=== PATIENT | female | born 1980 | race Caucasian/White ===

== ENCOUNTER 2017-07-29 13:19 | Inpatient (IN) | payer BC ==
[2017-07-29] MEDS: Lactated Ringers 1,000 ML IV SCH ×3 (13:45→17:23)
[2017-07-29] MEDS ORDERED: Nalbuphine 20 MG/ML 1 ML Syringe IVPUSH PRN (13:59)
[2017-07-29] MEDS ORDERED: Ondansetron 4 MG/2 ML SDV IVPUSH PRN ×2 (13:59→14:11)
[2017-07-29] MEDS ORDERED: Sodium Chloride 0.9% 10 ML Syringe FLUSH PRN (13:59)
[2017-07-29] MEDS ORDERED: Oxytocin/Lactated Ringers 10 UNIT/1,000 ML BAG IV SCH (14:00)
[2017-07-29] MEDS ORDERED: ePHEDrine 50 MG/ML SDV IVPUSH PRN (14:11)
[2017-07-29] MEDS ORDERED: fentaNYL 100 MCG/2 ML SDV EPIDUR PRN (14:11)
[2017-07-29] MEDS ORDERED: diphenhydrAMINE 50 MG/ML SDV IVPUSH PRN (14:11)
[2017-07-29] MEDS ORDERED: Bupivacaine/fentaNYL/NS 100 ML Bag EPIDUR SCH (14:15)
--- NOTE | 2017-07-29 14:59 | PCM.PREANE ---
Preanesthetic Assessment - Anesthesia/Transfusion/Family Hx Anesthesia History: Prior Anesthesia Without Reaction Family History of Anesthesia Reaction: No Transfusion History: No Prior Transfusion(s) - Review of Systems General: No Symptoms Pulmonary: Cough (Start of a cold, nonproductive. Mild sore throat.) Cardiovascular: No Symptoms Gastrointestinal: No Symptoms Neurological: No Symptoms Other: Reports: None - Physical Assessment Pulse: 93 O2 Sat by Pulse Oximetry: 99 Respiratory Rate: 18 Blood Pressure: 133/64 Temperature: 36.2 C Height: 1.7 m Weight: 94.801 kg ASA Class: 2 Mental Status: Alert & Oriented x3 Airway Class: Mallampati = 2 Dentition: Reports: Normal Dentition Thyro-Mental Finger Breadths: 3 Mouth Opening Finger Breadths: 3 ROM/Head Extension: Full Lungs: Clear to Auscultation, Normal Respiratory Effort Cardiovascular: Regular Rate, Regular Rhythm - Lab Values: Laboratory Last Values WBC 11.62 K/mm3 (3.98-10.04) H 07/29/17 14:00 RBC 3.69 M/mm3 (3.98-5.22) L 07/29/17 14:00 Hgb 10.2 gm/L (11.2-15.7) L 07/29/17 14:00 Hct 31.9 % (34.1-44.9) L 07/29/17 14:00 MCV 86.4 fl (79.4-94.8) 07/29/17 14:00 MCH 27.6 pg (25.6-32.2) 07/29/17 14:00 MCHC 32.0 g/dl (32.2-35.5) L 07/29/17 14:00 RDW Std Deviation 40.9 fL (36.4-46.3) 07/29/17 14:00 Plt Count 296 K/mm3 (182-369) 07/29/17 14:00 MPV 8.9 fl (9.4-12.3) L 07/29/17 14:00 Neut % (Auto) 74.2 % (34.0-71.1) H 07/29/17 14:00 Lymph % (Auto) 18.5 % (19.3-51.7) L 07/29/17 14:00 [place] % (Auto) 5.9 % (4.7-12.5) 07/29/17 14:00 Eos % (Auto) 1.0 (0.7-5.8) 07/29/17 14:00 Baso % (Auto) 0.2 % (0.1-1.2) 07/29/17 14:00 Neut # (Auto) 8.63 K/mm3 (1.56-6.13) H 07/29/17 14:00 Lymph # (Auto) 2.15 K/mm3 (1.18-3.74) 07/29/17 14:00 [place] # (Auto) 0.68 K/mm3 (0.24-0.36) H 07/29/17 14:00 Eos # (Auto) 0.12 K/mm3 (0.04-0.36) 07/29/17 14:00 Baso # (Auto) 0.02 K/mm3 (0.01-0.08) 07/29/17 14:00 - Allergies Allergies/Adverse Reactions: Allergies Allergy/AdvReac Type Severity Reaction Status Date / Time No Known Allergies Allergy Verified 01/13/15 04:00 - Acknowledgements Anesthesia Type Planned: Epidural Pt an Appropriate Candidate for the Planned Anesthesia: Yes Alternatives and Risks of Anesthesia Discussed w Pt/Guardian: Yes Pt/Guardian Understands and Agrees with Anesthesia Plan: Yes PreAnesthesia Questionnaire - Past Health History Medical/Surgical History: Denies 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: - Past Surgical History HEENT Surgical History: Reports: Oral Surgery Female Surgical History: Reports: Cystoscopy Other Female Surgeries/Procedures: abnormal papsmear x 2 Musculoskeletal Surgical History: Reports: Other (See Below) Other Musculoskeletal Surgeries/Procedures:: removal of a pilonidal cyst 2002 and fracture care tiblia closed 2003 - HOME MEDS Home Medications: Home Meds Benzocaine/Menthol [Dermoplast Pain Relief [place]] 56 gm TOP ASDIRECTED PRN #1 canister 01/14/15 [Rx] Ibuprofen [Motrin] 600 mg PO Q6H PRN #1 tablet 01/14/15 [Rx] Lanolin [Lansinoh HPA] 7 gm TOP ASDIRECTED PRN #1 tube 01/14/15 [Rx] Witch Pao [Tucks] 1 each TP Q12HR PRN #1 med..pad 01/14/15 [Rx] - CURRENT (IN HOUSE) MEDS Current Meds: Current Medications Diphenhydramine HCl (Benadryl) 25 mg IVPUSH Q6H PRN PRN Reason: Pruritis Ephedrine Sulfate (Ephedrine Sulfate) 5 mg IVPUSH ASDIRECTED PRN PRN Reason: Hypotension Fentanyl (Sublimaze) 100 mcg EPIDUR ONETIME PRN PRN Reason: Pain Last Admin: 07/29/17 14:44 Dose: 100 mcg Fentanyl/Bupivacaine HCl (Fentanyl/Bupivacaine/Ns 2 Mcg-0.125% 100 Ml) 100 ml EPIDUR ASDIRECTED [facility] Last Admin: 07/29/17 14:44 Dose: 100 ml Lactated Ringer's (Ringers, Lactated) 1,000 mls @ 100 mls/hr IV ASDIRECTED [facility] Last Admin: 07/29/17 14:40 Dose: 999 mls/hr Oxytocin/Lactated Ringer's (Pitocin In Lr 10 Units/1,000 Ml) 10 unit in 1,000 mls @ 500 mls/hr IV .CONTINUOUS [facility] Nalbuphine HCl (Nubain) 10 mg IVPUSH Q2H PRN PRN Reason: Pain (moderate 4-6) Ondansetron HCl (Zofran) 4 mg IVPUSH Q4H PRN PRN Reason: Nausea/Vomiting Ondansetron HCl (Zofran) 4 mg IVPUSH ONETIME PRN PRN Reason: Nausea/Vomiting Sodium Chloride (Saline Flush) 10 ml FLUSH ASDIRECTED PRN PRN Reason: Keep Vein Open
[2017-07-29] MEDS ORDERED: fentaNYL 100 MCG/2 ML SDV ONE (17:02)
[2017-07-29] MEDS ORDERED: Bupivacaine 0.25% 10 ML SDV ONE (18:00)
[2017-07-29] MEDS ORDERED: Acetaminophen 325 MG Tab PO PRN (19:48)
[2017-07-29] MEDS ORDERED: Witch Hazel Medicated Pads 100/Jar TOP PRN (19:48)
[2017-07-29] MEDS ORDERED: Lanolin 100% Cream 7 GM Tube TOP PRN (19:48)
[2017-07-29] MEDS ORDERED: Benzocaine/Menthol 20%-0.5% Spray 56 GM Canister TOP PRN (19:48)
[2017-07-29] MEDS ORDERED: Docusate Sodium 100 MG Cap PO PRN (19:48)
[2017-07-29] MEDS: Ibuprofen 600 MG Tab PO PRN (21:20)
--- NOTE | 2017-07-30 07:41 | PCM48HPAN ---
Post Anesthesia Note - EVALUATION WITHIN 48HRS OF ANESTHETIC Vital Signs in Normal Range: Yes Patient Participated in Evaluation: Yes Respiratory Function Stable: Yes Airway Patent: Yes Cardiovascular Function Stable: Yes Hydration Status Stable: Yes Pain Control Satisfactory: Yes Nausea and Vomiting Control Satisfactory: Yes Mental Status Recovered: Yes Pulse Rate: 90 Resp Rate: 15 Temperature: 36.4 C Blood Pressure: 112/63 - COMMENTS/OBSERVATIONS Free Text/Narrative:: no anesthesia complications noted
[2017-07-30] MEDS: Ibuprofen 600 MG Tab PO PRN (12:34)
--- NOTE | 2017-07-30 21:57 | PCM.PNPP ---
- General Info Date of Service: 07/30/17 Functional Status: Reports: Pain Controlled - Review of Systems General: Reports: No Symptoms HEENT: Reports: No Symptoms Pulmonary: Reports: No Symptoms Cardiovascular: Reports: No Symptoms Gastrointestinal: Reports: No Symptoms Genitourinary: Reports: No Symptoms Musculoskeletal: Reports: No Symptoms Skin: Reports: No Symptoms Neurological: Reports: No Symptoms Psychiatric: Reports: No Symptoms - General Info Date of Service: 07/30/17 - Patient Data Vital Signs - Most Recent: Last Vital Signs Temp 36.4 C 07/30/17 16:22 Pulse 81 07/30/17 16:22 Resp 17 07/30/17 16:22 BP 112/80 07/30/17 16:22 Pulse Ox 99 07/30/17 16:22 Weight - Most Recent: 94.801 kg I&O - Last 24 Hours: Intake & Output 07/30/17 07/30/17 07/30/17 06:59 14:59 22:59 Intake Total 120 120 Balance 120 120 Med Orders - Current: Current Medications Acetaminophen (Tylenol) 650 mg PO Q4H PRN PRN Reason: mild pain or fever Benzocaine/Menthol (Dermoplast Pain Relief [place]) 0 gm TOP ASDIRECTED PRN PRN Reason: Perineal Comfort Measure Last Admin: 07/29/17 21:19 Dose: 1 applic Docusate Sodium (Colace) 100 mg PO BID PRN PRN Reason: Constipation Last Admin: 07/29/17 21:21 Dose: 100 mg Emollient Ointment (Lansinoh Hpa) 0 gm TOP ASDIRECTED PRN PRN Reason: Sore Nipples Ibuprofen (Motrin) 600 mg PO Q4H PRN PRN Reason: Mild pain or fever Last Admin: 07/30/17 12:34 Dose: 600 mg Witch Pao (Tucks) 1 pad TOP ASDIRECTED PRN PRN Reason: Hemorrhoid pain Last Admin: 07/29/17 21:18 Dose: 1 applic Discontinued Medications Diphenhydramine HCl (Benadryl) 25 mg IVPUSH Q6H PRN PRN Reason: Pruritis Ephedrine Sulfate (Ephedrine Sulfate) 5 mg IVPUSH ASDIRECTED PRN PRN Reason: Hypotension Fentanyl (Sublimaze) 100 mcg EPIDUR ONETIME PRN PRN Reason: Pain Last Admin: 07/29/17 14:44 Dose: 100 mcg Fentanyl (Sublimaze) Confirm Administered Dose 100 mcg .ROUTE .STK-MED ONE Stop: 07/29/17 17:03 Last Admin: 07/29/17 17:10 Dose: 100 mcg Fentanyl/Bupivacaine HCl (Fentanyl/Bupivacaine/Ns 2 Mcg-0.125% 100 Ml) 100 ml EPIDUR ASDIRECTED [facility] Last Admin: 07/29/17 14:44 Dose: 100 ml Lactated Ringer's (Ringers, Lactated) 1,000 mls @ 100 mls/hr IV ASDIRECTED [facility] Last Admin: 07/29/17 17:23 Dose: 50 mls/hr Oxytocin/Lactated Ringer's (Pitocin In Lr 10 Units/1,000 Ml) 10 unit in 1,000 mls @ 500 mls/hr IV .CONTINUOUS [facility] Last Admin: 07/29/17 19:08 Dose: 500 mls/hr Nalbuphine HCl (Nubain) 10 mg IVPUSH Q2H PRN PRN Reason: Pain (moderate 4-6) Ondansetron HCl (Zofran) 4 mg IVPUSH Q4H PRN PRN Reason: Nausea/Vomiting Ondansetron HCl (Zofran) 4 mg IVPUSH ONETIME PRN PRN Reason: Nausea/Vomiting Sodium Chloride (Saline Flush) 10 ml FLUSH ASDIRECTED PRN PRN Reason: Keep Vein Open - Infant Interaction Infant Disposition, : in Room with Family Infant Interaction: Holding Feeding: Breastfed Infant; Nursed Well Support Person: - Recovery Exam Fundal Tone: Firm Fundal Level: At Umbilicus Fundal Placement: Midline Lochia Amount: Moderate Lochia Color: Rubra/Red Perineum Description: Intact, Minimal Bruising/Swelling Episiotomy/Laceration: Approximated Bladder Status: Voiding Urinary Elimination: Voided - Exam General: Alert, Oriented HEENT: Pupils Equal Neck: Supple Lungs: Clear to Auscultation, Normal Respiratory Effort Cardiovascular: Regular Rate, Regular Rhythm GI/Abdominal Exam: Normal Bowel Sounds, Soft, Non-Tender, No Organomegaly, No Distention, No Abnormal Bruit, No Mass, Pelvis Stable Extremities: Normal Inspection, Normal Range of Motion, Non-Tender, No Pedal Edema, Normal Capillary Refill Skin: Warm, Dry, Intact Neurological: No New Focal Deficit Psy/Mental Status: Alert, Normal Affect, Normal Mood - Problem List Review Problem List Initiated/Reviewed/Updated: Yes - My Orders Last 24 Hours: My Active Orders 07/30/17 19:48 Heat Therapy [OM.PC] PRN - Assessment Assessment:: PPD1. Doing great. Sore but no complaints. - Plan Plan:: Probable discharge tomorrow
--- NOTE | 2017-07-31 07:22 | PCM.DCSUM1 ---
Discharge Summary - Discharge Data Discharge Date: 07/31/17 Discharge Disposition: Home, Self-Care 01 Condition: Good - Patient Summary/Data Hospital Course: Admitted in labor. Unremarkable labor and course. - Patient Instructions Diet: Usual Diet as Tolerated Activity: No Strenuous Activities Activity, Other: pelvic rest Driving: May Drive Today Notify Provider of: Fever, Increased Pain, Swelling and Redness, Drainage, Nausea and/or Vomiting - Discharge Plan Home Medications: Home Meds Vit W-Ca,Fe,FA(<1 mg) [ Vitamins] 1 tab PO DAILY 07/29/17 [ History] Referrals: Yeimy Cassidy MD [Primary Care Provider] - (2-4 weeks) - Discharge Summary/Plan Comment DC Time >30 min.: No - General Info Date of Service: 07/31/17 Functional Status: Reports: Pain Controlled - Review of Systems General: Reports: No Symptoms HEENT: Reports: No Symptoms Pulmonary: Reports: No Symptoms Cardiovascular: Reports: No Symptoms Gastrointestinal: Reports: No Symptoms Genitourinary: Reports: No Symptoms Musculoskeletal: Reports: No Symptoms Skin: Reports: No Symptoms Neurological: Reports: No Symptoms Psychiatric: Reports: No Symptoms - Patient Data Vitals - Most Recent: Last Vital Signs Temp 36.8 C 07/31/17 05:12 Pulse 68 07/31/17 05:12 Resp 16 07/31/17 05:12 BP 123/73 07/31/17 05:12 Pulse Ox 99 07/31/17 05:12 Weight - Most Recent: 94.801 kg I&O - Last 24 hours: Intake & Output 07/30/17 07/31/17 07/31/17 22:59 06:59 14:59 Intake Total 120 Balance 120 Med Orders - Current: Current Medications Acetaminophen (Tylenol) 650 mg PO Q4H PRN PRN Reason: mild pain or fever Benzocaine/Menthol (Dermoplast Pain Relief [place]) 0 gm TOP ASDIRECTED PRN PRN Reason: Perineal Comfort Measure Last Admin: 07/29/17 21:19 Dose: 1 applic Docusate Sodium (Colace) 100 mg PO BID PRN PRN Reason: Constipation Last Admin: 07/29/17 21:21 Dose: 100 mg Emollient Ointment (Lansinoh Hpa) 0 gm TOP ASDIRECTED PRN PRN Reason: Sore Nipples Ibuprofen (Motrin) 600 mg PO Q4H PRN PRN Reason: Mild pain or fever Last Admin: 07/30/17 12:34 Dose: 600 mg Witch Pao (Tucks) 1 pad TOP ASDIRECTED PRN PRN Reason: Hemorrhoid pain Last Admin: 07/29/17 21:18 Dose: 1 applic Discontinued Medications Diphenhydramine HCl (Benadryl) 25 mg IVPUSH Q6H PRN PRN Reason: Pruritis Ephedrine Sulfate (Ephedrine Sulfate) 5 mg IVPUSH ASDIRECTED PRN PRN Reason: Hypotension Fentanyl (Sublimaze) 100 mcg EPIDUR ONETIME PRN PRN Reason: Pain Last Admin: 07/29/17 14:44 Dose: 100 mcg Fentanyl (Sublimaze) Confirm Administered Dose 100 mcg .ROUTE .STK-MED ONE Stop: 07/29/17 17:03 Last Admin: 07/29/17 17:10 Dose: 100 mcg Fentanyl/Bupivacaine HCl (Fentanyl/Bupivacaine/Ns 2 Mcg-0.125% 100 Ml) 100 ml EPIDUR ASDIRECTED [facility] Last Admin: 07/29/17 14:44 Dose: 100 ml Lactated Ringer's (Ringers, Lactated) 1,000 mls @ 100 mls/hr IV ASDIRECTED [facility] Last Admin: 07/29/17 17:23 Dose: 50 mls/hr Oxytocin/Lactated Ringer's (Pitocin In Lr 10 Units/1,000 Ml) 10 unit in 1,000 mls @ 500 mls/hr IV .CONTINUOUS [facility] Last Admin: 07/29/17 19:08 Dose: 500 mls/hr Nalbuphine HCl (Nubain) 10 mg IVPUSH Q2H PRN PRN Reason: Pain (moderate 4-6) Ondansetron HCl (Zofran) 4 mg IVPUSH Q4H PRN PRN Reason: Nausea/Vomiting Ondansetron HCl (Zofran) 4 mg IVPUSH ONETIME PRN PRN Reason: Nausea/Vomiting Sodium Chloride (Saline Flush) 10 ml FLUSH ASDIRECTED PRN PRN Reason: Keep Vein Open - Exam General: Reports: Alert, Oriented HEENT: Reports: Pupils Equal, Pupils Reactive, EOMI, Mucous Membr. Moist/[place] Neck: Reports: Supple Lungs: Reports: Clear to Auscultation, Normal Respiratory Effort Cardiovascular: Reports: Regular Rate, Regular Rhythm GI/Abdominal Exam: Normal Bowel Sounds, Soft, Non-Tender, No Organomegaly, No Distention, No Abnormal Bruit, No Mass, Pelvis Stable (Female) Exam: Deferred Back Exam: Reports: Normal Inspection, Full Range of Motion Extremities: Normal Inspection, Normal Range of Motion, Non-Tender, No Pedal Edema, Normal Capillary Refill Skin: Reports: Warm, Dry, Intact Wound/Incisions: Reports: Healing Well Neurological: Reports: No New Focal Deficit Psy/Mental Status: Reports: Alert, Normal Affect, Normal Mood
[2017-07-31 09:41] VITALS: BP 120/78
--- NOTE | 2017-08-04 04:29 | PCM.LDHP ---
L&D History of Present Illness - General Date of Service: 07/29/17 Admit Problem/Dx: Admission Diagnosis/Problem Admission Diagnosis/Problem Normal labor Source of Information: Patient History Limitations: Reports: No Limitations - History of Present Illness Introduction:: 37 year old female presents in active labor. 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: - Past Surgical History HEENT Surgical History: Reports: Oral Surgery Female Surgical History: Reports: Cystoscopy Other Female Surgeries/Procedures: abnormal papsmear x 2 Musculoskeletal Surgical History: Reports: Other (See Below) Other Musculoskeletal Surgeries/Procedures:: removal of a pilonidal cyst 2002 and fracture care tiblia closed 2002 Social & Family History - Family History Family Medical History: Noncontributory - Tobacco Use Smoking Status *Q: Never Smoker Second Hand Smoke Exposure: No - Recreational Drug Use Recreational Drug Use: No H&P Review of Systems - Review of Systems: Review Of Systems: ROS reveals no pertinent complaints other than HPI. L&D Exam - Exam Exam: See Below - Vital Signs Vital Signs: Last Vital Signs Temp 36.7 C 07/31/17 08:56 Pulse 91 07/31/17 08:56 Resp 16 07/31/17 08:56 BP 120/78 07/31/17 08:56 Pulse Ox 98 07/31/17 08:56 Weight: 94.801 kg - OB Specific Contraction Intensity: Moderate to Strong Movement: Active Heart Tones: Present Heart Rate (FHR) Variability: Moderate (6-25 bmp) Presentation: Vertex - Montiel Score Montiel Score Cervix Position: Midposition Montiel Score Consistency: Soft Montiel Score Effacement: 51-70% Montiel Score Dilation: 3-4 cm Montiel Score 's Station: -1 ,0 Montiel Score Total: 9 - Exam General: Alert, Oriented HEENT: PERRLA, Conjunctiva Clear, EACs Clear, EOMI, Hearing Intact, Mucosa Moist & [place], Nares Patent, Normal Nasal Septum, Posterior Pharynx Clear, TMs Clear Neck: Supple, Trachea Midline Lungs: Clear to Auscultation, Normal Respiratory Effort Cardiovascular: Regular Rate, Regular Rhythm GI/Abdominal Exam: Normal Bowel Sounds, Soft, Non-Tender, No Organomegaly, No Distention, No Abnormal Bruit, No Mass, Pelvis Stable Rectal Exam: Normal Exam, Normal Rectal Tone Back Exam: Normal Inspection, Full Range of Motion Extremities: Normal Inspection, Normal Range of Motion, Non-Tender, No Pedal Edema, Normal Capillary Refill Skin: Warm, Dry, Intact Neurological: Cranial Nerves Intact, Reflexes Equal Bilateral Psychiatric: Alert, Normal Affect, Normal Mood - Patient Data Result Diagrams: 07/29/17 14:00 Problem List Initiated/Reviewed/Updated: Yes Assessment/Plan Comment:: in active labor with painful contractions. AROM. Anticipate
--- NOTE | 2017-08-04 04:49 | PCM.SN ---
- Free Text/Narrative Note: Stage I - Patient presented in active labor spontaneous rupture of membranes. Epidural anesthesia. Progressed to complete with overall reassuring heart tones. Stage II - spontaneous vaginal delivery of viable male weight 4220 g Apgars 7/9 at 1907 on 07/29/2017. Head delivered in controlled manner over intact perineum. Body and shoulders followed atraumatically to maternal abdomen positive cry. Cord clamped and cut after approximately 60 seconds. Cord blood collected Stage III - continuous vaginal delivery of intact placenta with three-vessel cord. No lacerations. Estimated blood loss 150
== END 2017-07-31 09:15 | disposition home or self-care (01) | DRG 560 ==
LOC: JD.OBCHECK 13:19 → JD.OB 13:58 → JD.OBCHECK 13:59 → JD.OB 13:59 → OBSVTOIN 19:07 → JD.OB 19:07
PROVIDERS: ADMIT Obstetrics & Gynecology; ATTEND Obstetrics & Gynecology
PROC: 0HQ9XZZ Repair Perineum Skin, External Approach (ICD-10-PCS; principal; 2017-07-29)
PROC: 10E0XZZ Delivery of Products of Conception, External Approach (ICD-10-PCS; principal; 2017-07-29)
PROC: 00HU33Z Insertion of Infusion Device into Spinal Canal, Percutaneous Approach (ICD-10-PCS; 2017-07-29)
PROC: 3E0R3BZ Introduction of Anesthetic Agent into Spinal Canal, Percutaneous Approach (ICD-10-PCS; 2017-07-29)
DX: O66.0 Obstructed labor due to shoulder dystocia (principal); O70.0 First degree perineal laceration during delivery; Z3A.38 38 weeks gestation of pregnancy; Z37.0 Single live birth
CPT/HCPCS: 01967; 36415; 51702; 59025; 59300; 59409; 85025; A9270-GY; J2590; J3010; J7120